=== PATIENT | female | born 1935 | race Caucasian/White ===

== ENCOUNTER 2020-12-30 15:17 | Emergency (ER) | payer MEDICARE, OTHER ==
[~2020-12-30] VITALS: Ht 157.5 cm; Wt 77.3 kg
[~2020-12-30 15:17] MED LIST: CELE10TA PO; DILT240C82 PO; ESTR62CR PV; GABA-1171 PO; GLUCTAB6 PO; HYDR-2541 PO; LEVA750T7 PO; LEVO137T14 PO; LOSA25TA14 PO; METO1TAB63 PO; MM S100C PO; NYST50SS SS; PRAD150C6 PO; SIMV20TA22 PO; THIA100T7 PO; TYLE650T30 PO; VITA-122 PO; VITA100018 PO; VITMTA PO
[2020-12-30] MEDS ORDERED: DILT240C83 (15:43)
[2020-12-30] MEDS ORDERED: METO1TAB87 PO (15:43)
[2020-12-30] MEDS ORDERED: ATOR1TAB19 (15:43)
[2020-12-30] MEDS ORDERED: FURO40TA2 (15:43)
[2020-12-30 17:05] LABS: BASO # 0.1 10^3/uL (0.0-0.2); BASO % 1.2 % (0.0-1.0); EOS # 0.5 10^3/uL (0.0-0.5); EOS % 4.7 % (0.0-3.0); HEMOGLOBIN 15.9 g/dl (12.0-15.5); LYMPH # 1.7 10^3/uL (1.5-5.0); LYMPH % 17.9 % (24.0-44.0); MEAN CORPUSCULAR HEMOGLOBIN 36.1 pg (27.0-33.0); MEAN CORPUSCULAR HGB CONC 34.6 g/dl (32.0-36.5); MEAN CORPUSCULAR VOLUME 104.5 fl (80.0-96.0); MONO # 0.8 10^3/uL (0.0-0.8); MONO % 8.5 % (2.0-8.0); NEUTROPHILS # 6.4 10^3/uL (1.5-8.5); NEUTROPHILS % 67.3 % (36.0-66.0); PLATELET COUNT, AUTOMATED 302 10^3/uL (150-450); WHITE BLOOD COUNT 9.6 10^3/uL (4.0-10.0)
--- NOTE | 2020-12-30 17:06 | REP ---
INDICATION: DYSPNEA/COUGH. COMPARISON: 07/25/2015 latest prior TECHNIQUE: Portable FINDINGS: The technique utilized in obtaining the radiograph has magnified the cardiac silhouette and accentuated the interstitial markings. Once again, there is evidence of interstitial fibrosis status quo. There is cardiomegaly accentuated by technique. A patchy left retrocardiac opacity may have developed since the last exam. There is evidence of left CP angle blunting. There is no significant change in the osseous structures. IMPRESSION: New left lower lobe opacity suspicious for pneumonia and seen superimposed upon chronic fibrotic changes. <Electronically signed by Richard Ruvalcaba > 12/30/20 [id number]
[2020-12-30 17:44] LABS: ALBUMIN 3.1 GM/DL (3.2-5.2); ALT/SGPT 25 U/L (12-78); BILIRUBIN,DIRECT 0.2 MG/DL (0.0-0.2); BILIRUBIN,TOTAL 0.7 MG/DL (0.2-1.0); BLOOD UREA NITROGEN 18 MG/DL (7-18); CALCIUM LEVEL 9.7 MG/DL (8.8-10.2); CARBON DIOXIDE LEVEL 29 MEQ/L (21-32); CHLORIDE LEVEL 105 MEQ/L (98-107); CK-MB VALUE MASS < 1.0 NG/ML (<3.6); CPK CREATINE PHOSPHOKINASE 128 U/L (26-192); CREATININE FOR GFR 1.11 MG/DL (0.55-1.30); GLOMERULAR FILTRATION RATE 49.9 (>32); GLUCOSE, FASTING 95 MG/DL (70-100); MB/CK RELATIVE INDEX 0.78 (< OR =4); NT-PRO BNP 4231 PG/ML (<450); POTASSIUM SERUM 3.8 MEQ/L (3.5-5.1); SODIUM LEVEL 141 MEQ/L (136-145); TOTAL PROTEIN 7.4 GM/DL (6.4-8.2); TROPONIN I < 0.02 NG/ML (< 0.10)
[2020-12-30] MEDS ORDERED: DOXYCYCLINE HYCLATE 100MG TABLET PO ONE (19:00)
[2020-12-30] MEDS ORDERED: DOXY1CAP62 PO ×2 (19:02→21:05)
--- NOTE | 2020-12-30 19:25 | REPVR ---
PROCEDURE INFORMATION: Exam: CT Chest Without Contrast; Diagnostic Exam date and time: 12/30/2020 5:51 PM Age: 85 years old Clinical indication: Other: Chf, ? pn lll TECHNIQUE: Imaging protocol: Diagnostic computed tomography of the chest without contrast. 3D rendering (Not supervised by radiologist): MIP and/or 3D reconstructed images were created by the technologist. Radiation optimization: All CT scans at this facility use at least one of these dose optimization techniques: automated exposure control; mA and/or kV adjustment per patient size (includes targeted exams where dose is matched to clinical indication); or iterative reconstruction. COMPARISON: [facility] PORTABLE CHEST X-RAY 12/30/2020 4:44 PM FINDINGS: Lungs: There are numerous small and moderate-sized bulla throughout all aspects of the lung consistent with bullous emphysema and changes of COPD. There are several segments of consolidated lung at the left lower lobe with air bronchograms consistent with atelectasis and pneumonia. Pleural spaces: There is no evidence of pneumothorax. There is no evidence of pleural effusion. Heart: The heart is top-normal in size and there is no pericardial effusion. Aorta: There is calcification along the aortic arch consistent with atherosclerotic changes. Lymph nodes: There are small calcified lymph nodes in the right hilar region. There is a large calcified conglomerate of lymph nodes in the subcarinal location. Gallbladder and bile ducts: There are numerous calcified gallstones in the midportion and neck of the gallbladder. Bones/joints: There is osteophyte formation of the thoracic spine with mild kyphosis. Soft tissues: Unremarkable. IMPRESSION: 1. Several segments of consolidated lung at the left lower lobe with air bronchograms consistent with atelectasis and pneumonic infiltrate. 2. Severe diffuse bullous emphysema. 3. Gallstones. Electronically signed by: Chapo Moss On 12/30/2020 19:24:46 PM
[2020-12-30 20:52] VITALS: BP 143/63
--- NOTE | 2020-12-30 21:44 | ECGEPIP ---
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
== END 2020-12-30 21:15 | disposition home or self-care (01) ==
LOC: M ED 15:17
DX: J18.9 Pneumonia, unspecified organism (principal); I11.0 Hypertensive heart disease with heart failure; I50.9 Heart failure, unspecified; J44.9 Chronic obstructive pulmonary disease, unspecified; N18.30 Chronic kidney disease, stage 3 unspecified; E78.5 Hyperlipidemia, unspecified; I48.91 Unspecified atrial fibrillation; E07.9 Disorder of thyroid, unspecified; F33.9 Major depressive disorder, recurrent, unspecified; I71.4 Abdominal aortic aneurysm, without rupture; E66.9 Obesity, unspecified; Z85.118 Personal history of other malignant neoplasm of bronchus and lung; Z79.899 Other long term (current) drug therapy; Z88.5 Allergy status to narcotic agent; Z91.040 Latex allergy status; Z87.891 Personal history of nicotine dependence

== ENCOUNTER 2022-09-07 20:00 | Inpatient (IN) | payer MEDICARE, OTHER ==
[~2022-09-07] VITALS: Ht 157.5 cm; Wt 67.0 kg
[~2022-09-07 20:00] MED LIST changes: +ATOR1TAB19; +DILT240C83; +DOXY-443 PO; +FURO40TA2; -GLUCTAB6 PO; +GLUCTAB7 PO; +LOSA25TA13 PO; -LOSA25TA14 PO; +METO1TAB87 PO; +NYST-38 SS; -NYST50SS SS
[2022-09-07] MEDS ORDERED: MORPHINE 4 MG/ML 1ML VIAL IV ONE (21:30)
[2022-09-07] MEDS ORDERED: NS 250 ML IV ONE (21:35)
[2022-09-07 21:53] LABS: BASO % 0.3 % (0.0-1.0); EOS % 0.2 % (0.0-3.0); HEMATOCRIT 31.1 % (36.0-47.0); HEMOGLOBIN 9.8 g/dl (12.0-15.5); LYMPH # 0.7 10^3/uL (1.5-5.0); LYMPH % 5.7 % (24.0-44.0); MEAN CORPUSCULAR HGB CONC 31.5 g/dl (32.0-36.5); MONO # 0.9 10^3/uL (0.0-0.8); MONO % 6.7 % (2.0-8.0); NEUTROPHILS # 11.3 10^3/uL (1.5-8.5); NEUTROPHILS % 86.7 % (36.0-66.0); PLATELET COUNT, AUTOMATED 216 10^3/uL (150-450); RED BLOOD COUNT 2.88 10^6/uL (4.00-5.40)
[2022-09-07] MEDS ORDERED: ONDANSETRON 4MG 2ML VIAL IV ONE (22:00)
[2022-09-07] MEDS ORDERED: IPRATROPIUM 0.5MG/ALBUTEROL 2.5MG INH SOL UD 3ML (DUONEB) NEB ONE ×2 (22:25)
[2022-09-07 22:26] LABS: LIPASE 29 U/L (12-53)
[2022-09-07 22:28] LABS: ALBUMIN 3.3 G/DL (3.2-5.2); ALKALINE PHOSPHATASE 85 U/L (46-116); ALT/SGPT 18 U/L (7.0-40); AST/SGOT 43 U/L (<34); BILIRUBIN,DIRECT 0.3 MG/DL (<0.4); BILIRUBIN,TOTAL 0.8 MG/DL (0.3-1.2); BLOOD UREA NITROGEN 24 MG/DL (9-23); CALCIUM LEVEL 9.3 MG/DL (8.3-10.6); CARBON DIOXIDE LEVEL 28 MMOL/L (20-31); CHLORIDE LEVEL 102 MMOL/L (98-107); CREATININE FOR GFR 0.98 MG/DL (0.55-1.30); GLOMERULAR FILTRATION RATE 57.4 (>32); GLUCOSE, FASTING 143 MG/DL (74-106); POTASSIUM SERUM 4.2 MMOL/L (3.5-5.1); SODIUM LEVEL 138 MMOL/L (136-145); TOTAL PROTEIN 7.6 G/DL (5.7-8.2)
[2022-09-08 00:23] LABS: CK-MB VALUE MASS < 1.0 NG/ML (<3.6)
[2022-09-08 00:36] LABS: CPK CREATINE PHOSPHOKINASE 44 U/L (34-145); MB/CK RELATIVE INDEX 2.27 (< OR =4)
[2022-09-08] MEDS ORDERED: methylPREDNISolone 125MG 2ML VIAL IV ONE (00:45)
[2022-09-08] MEDS ORDERED: DEXTROSE 50% 50ML SYRINGE IV PRN (01:45)
[2022-09-08] MEDS ORDERED: GLUCAGON INJ 1MG VIAL SC PRN (01:45)
[2022-09-08] MEDS ORDERED: GLUCOSE 4GM CHEW TABLET PO PRN (01:45)
[2022-09-08] MEDS ORDERED: ALBUTEROL SULFATE 2.5MG/0.5ML INH NEB SOLN NEB PRN (01:45)
[2022-09-08] MEDS ORDERED: IPRATROPIUM 0.5MG/ALBUTEROL 2.5MG INH SOL UD 3ML (DUONEB) NEB SCH (02:00)
[2022-09-08] MEDS ORDERED: VITA100T98 PO (02:13)
[2022-09-08] MEDS ORDERED: FURO40TA2 PO (02:13)
[2022-09-08] MEDS ORDERED: ATOR1TAB19 PO (02:13)
[2022-09-08] MEDS ORDERED: ACET1TAB37 PO (02:13)
[2022-09-08] MEDS ORDERED: METO50TA7 PO (02:13)
[2022-09-08] MEDS ORDERED: DILT240C83 PO (02:13)
[2022-09-08] MEDS ORDERED: ANOR1AER INH (02:13)
[2022-09-08] MEDS ORDERED: ALBU8.5H INH (02:13)
[2022-09-08] MEDS ORDERED: NYST1POW9 TOP (02:13)
[2022-09-08] MEDS ORDERED: VITA200012 PO (02:13)
[2022-09-08] MEDS ORDERED: HOME MED LIST COMPLETE! XX SCH (02:15)
[2022-09-08 02:56] VITALS: BP 127/59
[2022-09-08 06:00] LABS: HEMATOCRIT 41.3 % (36.0-47.0); MEAN CORPUSCULAR VOLUME 106.4 fl (80.0-96.0); PLATELET COUNT, AUTOMATED 273 10^3/uL (150-450); RED BLOOD COUNT 3.88 10^6/uL (4.00-5.40); WHITE BLOOD COUNT 19.3 10^3/uL (4.0-10.0)
[2022-09-08 06:12] LABS: HEMOGLOBIN 13.2 g/dl (12.0-15.5)
[2022-09-08] MEDS: IPRATROPIUM 0.5MG/ALBUTEROL 2.5MG INH SOL UD 3ML (DUONEB) NEB SCH ×5 (07:22→23:01)
[2022-09-08 08:00] VITALS: O2SAT 95
[2022-09-08 08:10] VITALS: BP 101/50
[2022-09-08] MEDS ORDERED: methylPREDNISolone 40MG 1ML VIAL IV SCH (09:00)
[2022-09-08] MEDS: METOPROLOL TART 25 MG TABLET PO SCH ×2 (09:00→20:49)
[2022-09-08] MEDS: SYMBICORT 160/4.5MCG INHALER 6GM INH SCH ×2 (09:55→19:51)
[2022-09-08 10:00] VITALS: O2SAT 92
[2022-09-08] MEDS: CitaloPRAM (CeleXA) 10 MG TABLET PO SCH (10:25)
[2022-09-08] MEDS: methylPREDNISolone 40MG 1ML VIAL IV SCH ×3 (10:25→20:49)
[2022-09-08] MEDS: DABIGATRAN ETEXILATE 75 MG CAP (PRADAXA) PO SCH ×2 (10:26→20:46)
[2022-09-08] MEDS: INSULIN LISPRO (NovoLOG) PER UNIT SC SCH ×4 (10:27→20:31)
[2022-09-08] MEDS: ATORVASTATIN 10 MG TAB PO SCH (10:29)
[2022-09-08] MEDS ORDERED: PILL CUTTER 1 EACH XX ONE (10:31)
[2022-09-08] MEDS ORDERED: CHLORASEPTIC SPRAY MT PRN (12:20)
[2022-09-08 14:50] VITALS: BP 111/39
[2022-09-08] MEDS ORDERED: BISACODYL 5MG TAB PO PRN (19:45)
[2022-09-08 20:10] VITALS: BP 125/60
[2022-09-08] MEDS: LEVOTHYROXINE 137MCG TABLET (0.137MG) PO SCH (20:46)
[2022-09-08] MEDS: DOCUSATE SODIUM 100MG CAPSULE PO SCH (20:46)
[2022-09-08] MEDS: ACETAMINOPHEN TAB 650MG DOSE (2X325MG) PO PRN (22:44)
[2022-09-09] MEDS: methylPREDNISolone 40MG 1ML VIAL IV SCH ×4 (02:08→21:10)
[2022-09-09] MEDS: IPRATROPIUM 0.5MG/ALBUTEROL 2.5MG INH SOL UD 3ML (DUONEB) NEB SCH ×6 (03:04→23:06)
[2022-09-09 05:00] VITALS: BP 106/53
[2022-09-09 06:01] LABS: BASO % 0.1 % (0.0-1.0); HEMATOCRIT 37.2 % (36.0-47.0); LYMPH # 0.5 10^3/uL (1.5-5.0); MEAN CORPUSCULAR HEMOGLOBIN 33.8 pg (27.0-33.0); MEAN CORPUSCULAR HGB CONC 32.3 g/dl (32.0-36.5); MEAN CORPUSCULAR VOLUME 104.8 fl (80.0-96.0); MONO # 0.7 10^3/uL (0.0-0.8); MONO % 2.7 % (2.0-8.0); NEUTROPHILS # 23.4 10^3/uL (1.5-8.5); NEUTROPHILS % 93.3 % (36.0-66.0); PLATELET COUNT, AUTOMATED 255 10^3/uL (150-450); RED BLOOD COUNT 3.55 10^6/uL (4.00-5.40); WHITE BLOOD COUNT 25.1 10^3/uL (4.0-10.0)
[2022-09-09 06:33] LABS: CALCIUM LEVEL 9.5 MG/DL (8.3-10.6); CREATININE FOR GFR 1.76 MG/DL (0.55-1.30); GLOMERULAR FILTRATION RATE 29.2 (>32); POTASSIUM SERUM 3.9 MMOL/L (3.5-5.1)
[2022-09-09] MEDS: SYMBICORT 160/4.5MCG INHALER 6GM INH SCH ×2 (07:25→19:29)
[2022-09-09] MEDS: MIRALAX *UNIT DOSE* 17GM PACKET PO SCH (08:49)
[2022-09-09] MEDS: INSULIN LISPRO (NovoLOG) PER UNIT SC SCH ×4 (08:50→20:13)
[2022-09-09] MEDS: CitaloPRAM (CeleXA) 10 MG TABLET PO SCH (08:50)
[2022-09-09] MEDS: DABIGATRAN ETEXILATE 75 MG CAP (PRADAXA) PO SCH ×2 (08:50→20:09)
[2022-09-09] MEDS: METOPROLOL TART 25 MG TABLET PO SCH ×2 (08:51→20:10)
[2022-09-09] MEDS: ATORVASTATIN 10 MG TAB PO SCH (08:51)
[2022-09-09] MEDS: DOCUSATE SODIUM 100MG CAPSULE PO SCH ×2 (08:51→20:09)
[2022-09-09] MEDS ORDERED: FUROSEMIDE 40MG/4ML VIAL IV SCH (09:00)
[2022-09-09 11:49] VITALS: O2SAT 95
[2022-09-09] MEDS ORDERED: NS 500 ML IV ONE (17:15)
[2022-09-09] MEDS ORDERED: DIGOXIN 0.25 MG TAB PO ONE ×2 (17:25→23:30)
[2022-09-09] MEDS ORDERED: NS 1,000 ML IV ONE (19:20)
[2022-09-09] MEDS: LEVOTHYROXINE 137MCG TABLET (0.137MG) PO SCH (20:09)
[2022-09-09 21:00] VITALS: BP 122/60
[2022-09-09 23:10] VITALS: O2SAT 98
[2022-09-09] MEDS: ACETAMINOPHEN TAB 650MG DOSE (2X325MG) PO PRN (23:42)
[2022-09-10] MEDS ORDERED: MORPHINE 2 MG/ML 1ML VIAL IV ONE (02:00)
[2022-09-10 03:31] VITALS: BP 112/50
[2022-09-10] MEDS: IPRATROPIUM 0.5MG/ALBUTEROL 2.5MG INH SOL UD 3ML (DUONEB) NEB SCH ×3 (04:00→11:14)
[2022-09-10] MEDS ORDERED: METOPROLOL TART 12.5 MG PER 1/2 TAB PO ONE ×2 (04:00→06:00)
[2022-09-10 04:51] VITALS: BP 106/58
[2022-09-10] MEDS: methylPREDNISolone 40MG 1ML VIAL IV SCH (05:21)
[2022-09-10 05:53] LABS: BASO % 0.1 % (0.0-1.0); HEMATOCRIT 36.7 % (36.0-47.0); HEMOGLOBIN 11.8 g/dl (12.0-15.5); LYMPH # 0.4 10^3/uL (1.5-5.0); LYMPH % 1.9 % (24.0-44.0); MEAN CORPUSCULAR HEMOGLOBIN 33.9 pg (27.0-33.0); MEAN CORPUSCULAR HGB CONC 32.2 g/dl (32.0-36.5); MEAN CORPUSCULAR VOLUME 105.5 fl (80.0-96.0); MONO # 0.5 10^3/uL (0.0-0.8); MONO % 2.2 % (2.0-8.0); NEUTROPHILS # 19.8 10^3/uL (1.5-8.5); NEUTROPHILS % 94.1 % (36.0-66.0); PLATELET COUNT, AUTOMATED 258 10^3/uL (150-450); RED BLOOD COUNT 3.48 10^6/uL (4.00-5.40); WHITE BLOOD COUNT 21.1 10^3/uL (4.0-10.0)
[2022-09-10 06:00] VITALS: BP 114/58
[2022-09-10 06:29] VITALS: BP_SYST 114; BP_SYST 144; BP_DIAS 58
[2022-09-10 06:30] LABS: CALCIUM LEVEL 9.5 MG/DL (8.3-10.6); CREATININE FOR GFR 1.57 MG/DL (0.55-1.30); GLOMERULAR FILTRATION RATE 33.3 (>32); POTASSIUM SERUM 4.4 MMOL/L (3.5-5.1)
[2022-09-10] MEDS: SYMBICORT 160/4.5MCG INHALER 6GM INH SCH (07:09)
[2022-09-10] MEDS ORDERED: DIGOXIN 0.25 MG TAB PO SCH (09:00)
[2022-09-10] MEDS: ATORVASTATIN 10 MG TAB PO SCH (09:01)
[2022-09-10] MEDS: DOCUSATE SODIUM 100MG CAPSULE PO SCH (09:01)
[2022-09-10] MEDS: MIRALAX *UNIT DOSE* 17GM PACKET PO SCH (09:01)
[2022-09-10] MEDS: CitaloPRAM (CeleXA) 10 MG TABLET PO SCH (09:01)
[2022-09-10] MEDS: DABIGATRAN ETEXILATE 75 MG CAP (PRADAXA) PO SCH (09:01)
[2022-09-10] MEDS: INSULIN LISPRO (NovoLOG) PER UNIT SC SCH ×2 (09:02→13:25)
[2022-09-10] MEDS ORDERED: FURO40TA2 PO (10:45)
[2022-09-10] MEDS ORDERED: PRED10TA2 PO (10:45)
[2022-09-10] MEDS ORDERED: PRED20TA PO (10:47)
[2022-09-10] MEDS ORDERED: AMOX875T2 PO (10:47)
[2022-09-10] MEDS ORDERED: METOPROLOL TART 25 MG TABLET PO SCH (21:00)
== END 2022-09-10 13:49 | disposition home health service (06) | DRG 196 ==
LOC: M ED 20:00 → EDBD 20:00 → M ED INP 09-08 01:41 → ENRESERV 09-08 02:31 → M PCU 09-08 03:10 → M MSPAV 09-08 14:44
PROVIDERS: ADMIT Internal Medicine; ATTEND Internal Medicine Nephrology
DX: J84.9 Interstitial pulmonary disease, unspecified (principal); J96.21 Acute and chronic respiratory failure with hypoxia; N17.9 Acute kidney failure, unspecified; J44.9 Chronic obstructive pulmonary disease, unspecified; I48.91 Unspecified atrial fibrillation; R26.89 Other abnormalities of gait and mobility; F32.A Depression, unspecified; E03.9 Hypothyroidism, unspecified; Z86.16 Personal history of COVID-19; R05.3 Chronic cough; Z66 Do not resuscitate; Z99.81 Dependence on supplemental oxygen; Z85.118 Personal history of other malignant neoplasm of bronchus and lung; Z92.3 Personal history of irradiation; Z92.21 Personal history of antineoplastic chemotherapy; E78.00 Pure hypercholesterolemia, unspecified; Z87.891 Personal history of nicotine dependence; Z79.890 Hormone replacement therapy; Z79.899 Other long term (current) drug therapy; Z88.5 Allergy status to narcotic agent; Z91.040 Latex allergy status; Z86.718 Personal history of other venous thrombosis and embolism

== ENCOUNTER 2022-09-14 16:01 | Inpatient (IN) | payer OTHER ==
[~2022-09-14] VITALS: Ht 157.5 cm; Wt 63.6 kg
[~2022-09-14 16:01] MED LIST changes: +ACET1TAB37 PO; +ALBU8.5H INH; +AMOX875T2 PO; +ANOR1AER INH; +ATOR1TAB19 PO; +DILT240C83 PO; +FURO40TA2 PO; +METO50TA7 PO; +NYST1POW9 TOP; +PRED10TA2 PO; +PRED20TA PO; +VITA100T98 PO; +VITA200012 PO
[2022-09-14 18:21] LABS: BASO # 0.1 10^3/uL (0.0-0.2); BASO % 0.4 % (0.0-1.0); EOS % 0.1 % (0.0-3.0); HEMATOCRIT 41.3 % (36.0-47.0); HEMOGLOBIN 13.5 g/dl (12.0-15.5); LYMPH # 0.6 10^3/uL (1.5-5.0); LYMPH % 4.3 % (24.0-44.0); MEAN CORPUSCULAR HEMOGLOBIN 34.1 pg (27.0-33.0); MEAN CORPUSCULAR HGB CONC 32.7 g/dl (32.0-36.5); MEAN CORPUSCULAR VOLUME 104.3 fl (80.0-96.0); MONO # 0.3 10^3/uL (0.0-0.8); MONO % 2.3 % (2.0-8.0); NEUTROPHILS # 12.6 10^3/uL (1.5-8.5); PLATELET COUNT, AUTOMATED 311 10^3/uL (150-450); RED BLOOD COUNT 3.96 10^6/uL (4.00-5.40); WHITE BLOOD COUNT 13.8 10^3/uL (4.0-10.0)
[2022-09-14 19:02] LABS: RSV AMPLIFICATION NEGATIVE (NEGATIVE)
[2022-09-14 20:02] LABS: APPEARANCE, URINE CLEAR (CLEAR); BACTERIA, URINE AUTO NEGATIVE (NEGATIVE); BILIRUBIN, URINE AUTO NEGATIVE (NEGATIVE); BLOOD, URINE BLOOD 1+ (NEGATIVE); COLOR, URINE YELLOW (YELLOW); GLUCOSE, URINE (UA) AUTO NEGATIVE (NEGATIVE); KETONE, URINE AUTO NEGATIVE (NEGATIVE); LEUKOCYTE ESTERASE, URINE AUTO NEGATIVE (NEGATIVE); NITRITE, URINE AUTO NEGATIVE (NEGATIVE); PROTEIN, URINE AUTO 1+ mg/dL (NEGATIVE); RBC, URINE AUTO 0 /HPF (0-3); SPECIFIC GRAVITY URINE AUTO 1.014 (1.002-1.035); SQUAMOUS EPITHELIAL CELL UR AU 2 /HPF (0-6); WBC, URINE AUTO 0 /HPF (0-3)
[2022-09-14 21:09] LABS: CALCIUM LEVEL 8.8 MG/DL (8.3-10.6); CREATININE FOR GFR 1.39 MG/DL (0.55-1.30); GLOMERULAR FILTRATION RATE 38.4 (>32); POTASSIUM SERUM 3.9 MMOL/L (3.5-5.1)
[2022-09-14 21:10] LABS: ALBUMIN 2.8 G/DL (3.2-5.2); BILIRUBIN,DIRECT 0.2 MG/DL (<0.4); BILIRUBIN,TOTAL 0.5 MG/DL (0.3-1.2); MB/CK RELATIVE INDEX 4.34 (< OR =4); TOTAL PROTEIN 6.2 G/DL (5.7-8.2)
[2022-09-14 21:12] LABS: THYROID STIMULATING HORMONE 2.562 uIU/ML (0.55-4.78)
[2022-09-14] MEDS ORDERED: BISACODYL 10MG SUPP PR PRN (22:55)
[2022-09-14] MEDS ORDERED: ACETAMINOPHEN 650MG SUPP PR PRN (22:55)
[2022-09-14] MEDS ORDERED: ONDANSETRON 4MG ORAL DISINTEGRATING TAB PO PRN (22:55)
[2022-09-14] MEDS ORDERED: ALBUTEROL 90 MCG/ACT 8GM HFA INHALER INH PRN (22:55)
[2022-09-14] MEDS ORDERED: SCOPOLAMINE 1MG TRANSDERMAL PATCH TOP PRN (22:55)
[2022-09-14] MEDS ORDERED: LORazepam 1 MG TAB PO PRN (22:55)
[2022-09-14] MEDS ORDERED: MORPHINE 10MG/0.5ML ORAL CONCENTRATE SOLUTION U/D SL PRN (22:55)
[2022-09-14] MEDS ORDERED: ACETAMINOPHEN TAB 650MG DOSE (2X325MG) PO PRN (22:55)
[2022-09-14] MEDS ORDERED: PRED10TA2 PO (23:33)
[2022-09-14] MEDS ORDERED: AMOX875T2 PO (23:33)
[2022-09-14] MEDS ORDERED: FURO40TA2 PO (23:33)
[2022-09-14] MEDS ORDERED: HOME MED LIST COMPLETE! XX SCH (23:40)
[2022-09-15] MEDS: IPRATROPIUM 0.5MG/ALBUTEROL 2.5MG INH SOL UD 3ML (DUONEB) NEB SCH ×3 (12:00→20:35)
[2022-09-16] MEDS: IPRATROPIUM 0.5MG/ALBUTEROL 2.5MG INH SOL UD 3ML (DUONEB) NEB SCH ×4 (07:38→20:39)
[2022-09-16] MEDS: BISACODYL 5MG TAB PO SCH (20:25)
[2022-09-17] MEDS: IPRATROPIUM 0.5MG/ALBUTEROL 2.5MG INH SOL UD 3ML (DUONEB) NEB SCH ×4 (09:01→20:27)
[2022-09-17] MEDS ORDERED: ACETAMINOPHEN 650MG ER TAB (TYLENOL ARTHRITIS) PO PRN (15:15)
[2022-09-17] MEDS ORDERED: NYSTATIN 100,000 UNITS/GM TOPICAL PWD 15GM TOP PRN (15:15)
[2022-09-17 16:50] LABS: BASO % 0.3 % (0.0-1.0); EOS # 0.5 10^3/uL (0.0-0.5); EOS % 3.7 % (0.0-3.0); HEMOGLOBIN 12.6 g/dl (12.0-15.5); LYMPH # 1.5 10^3/uL (1.5-5.0); MEAN CORPUSCULAR HEMOGLOBIN 33.5 pg (27.0-33.0); MEAN CORPUSCULAR HGB CONC 31.5 g/dl (32.0-36.5); MEAN CORPUSCULAR VOLUME 106.4 fl (80.0-96.0); MONO # 0.6 10^3/uL (0.0-0.8); MONO % 4.2 % (2.0-8.0); NEUTROPHILS % 78.4 % (36.0-66.0); PLATELET COUNT, AUTOMATED 310 10^3/uL (150-450); RED BLOOD COUNT 3.76 10^6/uL (4.00-5.40)
[2022-09-17 17:18] LABS: CK-MB VALUE MASS 1.2 NG/ML (<3.6)
[2022-09-17 17:19] LABS: CPK CREATINE PHOSPHOKINASE 34 U/L (34-145); MB/CK RELATIVE INDEX 3.52 (< OR =4)
[2022-09-17 17:21] LABS: ALBUMIN 2.3 G/DL (3.2-5.2); ALKALINE PHOSPHATASE 68 U/L (46-116); ALT/SGPT 23 U/L (7.0-40); AST/SGOT 27 U/L (<34); BILIRUBIN,TOTAL 0.4 MG/DL (0.3-1.2); BLOOD UREA NITROGEN 25 MG/DL (9-23); CALCIUM LEVEL 8.8 MG/DL (8.3-10.6); CARBON DIOXIDE LEVEL 31 MMOL/L (20-31); CHLORIDE LEVEL 107 MMOL/L (98-107); CREATININE FOR GFR 0.89 MG/DL (0.55-1.30); GLOMERULAR FILTRATION RATE > 60.0 (>32); GLUCOSE, FASTING 144 MG/DL (74-106); MAGNESIUM LEVEL 1.9 MG/DL (1.8-2.4); POTASSIUM SERUM 3.4 MMOL/L (3.5-5.1); SODIUM LEVEL 143 MMOL/L (136-145); TOTAL PROTEIN 5.4 G/DL (5.7-8.2)
[2022-09-17] MEDS: CitaloPRAM (CeleXA) 10 MG TABLET PO SCH (17:57)
[2022-09-17] MEDS: ATORVASTATIN 10 MG TAB PO SCH (17:57)
[2022-09-17] MEDS: FUROSEMIDE 40 MG TAB PO SCH (17:57)
[2022-09-17] MEDS ORDERED: POTASSIUM CHLORIDE 10MEQ SR TABLET PO ONE (18:10)
[2022-09-17] MEDS ORDERED: FUROSEMIDE 40MG/4ML VIAL IV ONE (18:15)
[2022-09-17 19:36] VITALS: BP 146/87
[2022-09-17] MEDS ORDERED: LEVOTHYROXINE 137MCG TABLET (0.137MG) PO SCH (21:00)
[2022-09-17] MEDS ORDERED: CYANOCOBALAMIN 500 MCG TAB PO SCH (21:00)
[2022-09-17] MEDS: AUGMENTIN 500MG TAB PO SCH (21:57)
[2022-09-17] MEDS: DABIGATRAN ETEXILATE 75 MG CAP (PRADAXA) PO SCH (21:57)
[2022-09-17] MEDS: BISACODYL 5MG TAB PO SCH (21:57)
[2022-09-17] MEDS: METOPROLOL TART 50 MG TAB PO SCH (21:58)
[2022-09-18 06:10] VITALS: BP 113/67
[2022-09-18] MEDS: IPRATROPIUM 0.5MG/ALBUTEROL 2.5MG INH SOL UD 3ML (DUONEB) NEB SCH (06:14)
[2022-09-18 07:12] LABS: BASO % 0.3 % (0.0-1.0); EOS # 0.5 10^3/uL (0.0-0.5); EOS % 4.3 % (0.0-3.0); HEMATOCRIT 40.3 % (36.0-47.0); HEMOGLOBIN 12.7 g/dl (12.0-15.5); LYMPH # 1.5 10^3/uL (1.5-5.0); LYMPH % 12.1 % (24.0-44.0); MEAN CORPUSCULAR HEMOGLOBIN 33.3 pg (27.0-33.0); MEAN CORPUSCULAR HGB CONC 31.5 g/dl (32.0-36.5); MEAN CORPUSCULAR VOLUME 105.8 fl (80.0-96.0); MONO # 0.5 10^3/uL (0.0-0.8); MONO % 4.2 % (2.0-8.0); NEUTROPHILS # 9.6 10^3/uL (1.5-8.5); NEUTROPHILS % 76.6 % (36.0-66.0); PLATELET COUNT, AUTOMATED 330 10^3/uL (150-450); RED BLOOD COUNT 3.81 10^6/uL (4.00-5.40); WHITE BLOOD COUNT 12.5 10^3/uL (4.0-10.0)
[2022-09-18 07:41] LABS: ALBUMIN 2.4 G/DL (3.2-5.2); BILIRUBIN,TOTAL 0.4 MG/DL (0.3-1.2); CALCIUM LEVEL 8.5 MG/DL (8.3-10.6); CREATININE FOR GFR 1.05 MG/DL (0.55-1.30); POTASSIUM SERUM 3.8 MMOL/L (3.5-5.1); TOTAL PROTEIN 5.6 G/DL (5.7-8.2)
[2022-09-18] MEDS: DABIGATRAN ETEXILATE 75 MG CAP (PRADAXA) PO SCH (08:26)
[2022-09-18] MEDS: AUGMENTIN 500MG TAB PO SCH (08:26)
[2022-09-18 08:27] VITALS: BP 113/67
[2022-09-18] MEDS: FUROSEMIDE 40 MG TAB PO SCH (08:27)
[2022-09-18] MEDS: CitaloPRAM (CeleXA) 10 MG TABLET PO SCH (08:27)
[2022-09-18] MEDS: ATORVASTATIN 10 MG TAB PO SCH (08:27)
[2022-09-18] MEDS: METOPROLOL TART 50 MG TAB PO SCH (08:27)
[2022-09-18] MEDS ORDERED: POTASSIUM CHLORIDE 10MEQ SR TABLET PO SCH (09:00)
[2022-09-18 09:04] LABS: ERYTHROCYTE SEDIMENTATION RATE 44 mm/hr (0-30)
[2022-09-18 10:34] VITALS: BP 89/58
== END 2022-09-18 10:34 | disposition expired | DRG 196 ==
LOC: M ED 16:01 → M ED INP 22:51 → M MS4PR 09-15 01:45 → M MS5PR 09-16 16:47
PROVIDERS: ADMIT Internal Medicine; ATTEND General Practice
DX: J84.9 Interstitial pulmonary disease, unspecified (principal); J96.21 Acute and chronic respiratory failure with hypoxia; I50.33 Acute on chronic diastolic (congestive) heart failure; N17.9 Acute kidney failure, unspecified; J44.9 Chronic obstructive pulmonary disease, unspecified; I48.91 Unspecified atrial fibrillation; Z66 Do not resuscitate; I11.0 Hypertensive heart disease with heart failure; K21.9 Gastro-esophageal reflux disease without esophagitis; E87.6 Hypokalemia; M19.90 Unspecified osteoarthritis, unspecified site; E03.9 Hypothyroidism, unspecified; M54.9 Dorsalgia, unspecified; G89.29 Other chronic pain; Z86.718 Personal history of other venous thrombosis and embolism; Z98.41 Cataract extraction status, right eye; Z98.42 Cataract extraction status, left eye; Z90.49 Acquired absence of other specified parts of digestive tract; Z87.891 Personal history of nicotine dependence; Z85.118 Personal history of other malignant neoplasm of bronchus and lung; Z79.890 Hormone replacement therapy; Z79.2 Long term (current) use of antibiotics; Z79.899 Other long term (current) drug therapy; Z91.040 Latex allergy status; Z88.5 Allergy status to narcotic agent; Z85.828 Personal history of other malignant neoplasm of skin; Z85.3 Personal history of malignant neoplasm of breast; Z99.81 Dependence on supplemental oxygen